=== PATIENT | male | born 1945 | race Caucasian/White ===

== ENCOUNTER → 2020-08-20 | Outpatient (CLI) | payer OTHER ==
[~2020-08-20] MED LIST: ALEVE220 M1 PO; ASPIRIN EC81 M1 PO; CALCIUM MAGNES1 EAC2 PO; ESSENTIAL DAIL1 EACH PO; FISH OIL 1,0001 EAC5 PO; FLEXERIL PO; GLUCOSAMINE &1 EAC1 PO; LISINOPRIL20 MG PO; MOBIC7.5 MG PO; MS CONTIN15 MG PO; MUCINEX600 MG PO; MULTIVITAMINS PO; NAPROSYN500 MG PO; NORCO 10-325 T1 EACH; NORCO 10-325 T1 EACH PO; NORCO 5-325 TA1 EACH PO; NORVASC5 M1 PO; PEPCID AC20 MG PO; PREDNISONE 20 M20 M1 PO; ZOFRAN 4 MG ORAL4 MG PO
== END ==
LOC: LAB 07:33
PROVIDERS: ATTEND Orthopaedic Surgery
DX: Z01.812 Encounter for preprocedural laboratory examination (principal); Z20.828 Contact with and (suspected) exposure to other viral communicable diseases

== ENCOUNTER 2020-08-23 06:11 | Day surgery (SDC) | payer OTHER ==
[2020-08-17 11:42] LABS: HEMATOCRIT 42.9 % (42.0-52.0); HEMOGLOBIN 14.7 gm/dL (14.0-18.0); MCH 31.9 pg (26.0-34.0); MCHC 34.3 g/dL (28.0-37.0); MCV 92.9 fL (80.0-100.0); RBC 4.62 mil/uL (4.50-6.00); RDW 11.5 % (10.5-14.5); WBC 6.4 thou/uL (4.0-11.0)
[2020-08-17 11:46] LABS: ALBUMIN 4.3 g/dL (3.4-5.0); CALCIUM 9.1 mg/dL (8.5-10.1); CREATININE 2.1 mg/dL (0.7-1.3); POTASSIUM 4.5 mmol/L (3.5-5.1); URINE BILIRUBIN NEGATIVE (Negative); URINE BLOOD TRACE (Negative); URINE CLARITY CLEAR; URINE COLOR YELLOW; URINE GLUCOSE-RANDOM* NEGATIVE (Negative); URINE KETONES NEGATIVE (Negative); URINE LEUKOCYTES-REFLEX NEGATIVE (Negative); URINE NITRITE-REFLEX NEGATIVE (Negative); URINE PROTEIN (DIPSTICK) NEGATIVE (Negative); URINE SPECIFIC GRAVITY >= 1.030 (1.005-1.035); URINE UROBILINOGEN 0.2 E.U./dl (0.2-1.0)
[2020-08-17 11:51] LABS: INR 1.1; PROTIME 11.3 Seconds (9.3-11.4)
--- NOTE | 2020-08-17 14:39 | EKG ---
[facility] [place] [address] ELECTROCARDIOGRAM REPORT Name: RUDOLPH GIL Room #: PRE [facility] M..#: [id number] Admission: Attend Phys: Naun Peterson MD Discharge: Date of : 45 Report #: [id number] THIS REPORT FOR: cc: Cristiano Elliott MD, Rene P. MD Santiago, Patrick MD [facility] ~ THIS REPORT FOR: //name// [facility] Test Date: 2020-08-17 Test Time: 11:35:12 Pat Name: RUDOLPH GIL Department: Room: Gender: Tongue Presser[facility] 1945 Requested By: Naun Peterson Order Number: [id number] : Rebel Vaca Measurements Intervals [place] Rate: 76 P: 34 PA: 168 QRS: -9 QRSD: 87 T: 8 QT: 380 QTc: 428 Interpretive Statements Sinus rhythm Compared to ECG 09/10/2011 11:29:50 Left ventricular hypertrophy no longer present Electronically Signed On 08-17-2020 14:39:33 PEA VINER [employer]CH[employer]IC by Rebel Vaca [email or web address] <ELECTRONICALLY SIGNED> By: Rebel Vaca MD, FACC 08/17/20 1439 1135 1135 Rebel Vaca MD, [facility] /EPI
[~2020-08-23] VITALS: Ht 152.4 cm; Wt 78.9 kg
[2020-08-23 06:41] VITALS: BP 130/85
--- NOTE | 2020-08-23 13:35 | NUR ---
PT ADMITTED TO ROOM 441 AT 11:00 AT BEDSIDE. PT ALERT XS4 GAVE PRN PO PAIN MED AND STATRED IV FLUIDS. PT WANTS TO DISCHARGE THIS AFTERNOON THERAPY TO WORK WITH PATIENT. ADMISSION PAPERWORK COMPLETED. HAS [employer] DRESSING INTACT TO RIGHT KNEE, SCD'S LISA AND IVAN HOSE ON LISA LE'S.
[2020-08-23 14:26] VITALS: BP 109/68
[2020-08-23 14:27] VITALS: BP 118/72
--- NOTE | 2020-08-23 15:34 | NUR ---
ASSESSMENT: CM REVIEWED CHART AND SPOKE WITH PTS . PT IS S/P PARTIAL KNEE REPLACEMENT. PT LIVES IN A HOUSE WITH HIS . THEY HAVE 3 STEPS WITH A HANDRAIL TO ENTER. ALL PATIENTS NEEDS ARE ON ONE LEVEL. PT HAS A CANE, FWW, AND 4WW AT HOME. PT IS PLANNING ON DOING OUTPATIENT THERAPY AND TO BEGIN ON THURSDAY. PT AND REPORT THEY SHOULD HAVE NO NEEDS FROM CM PRIOR TO DISCHARGE. CM WILL CONTINUE TO FOLLOW TO ASSIST NEEDED.
[2020-08-23 19:09] VITALS: BP 119/71
[2020-08-24 03:41] VITALS: BP 122/77
--- NOTE | 2020-08-24 03:55 | NUR ---
ASSUMED PT CARE AT 1900.PT ALERT/CALM AND COPERATIVE WITH CARE.PT UP WITH ASSIST.URINAL AT BEDSIDE WITH ADEQUATE URINE OUTPUT.MIKHAIL DRSG,IVAN,POLAR PACK AND SCD IN PLACE.PT RESTING ON HIS BED AT THIS TIME.CALL LIGHT WITHIN REACH.
[2020-08-24 06:16] LABS: HEMATOCRIT 36.2 % (42.0-52.0); HEMOGLOBIN 12.1 gm/dL (14.0-18.0); MCH 31.9 pg (26.0-34.0); MCHC 33.5 g/dL (28.0-37.0); MCV 95.1 fL (80.0-100.0); RBC 3.81 mil/uL (4.50-6.00); RDW 11.8 % (10.5-14.5); WBC 8.8 thou/uL (4.0-11.0)
[2020-08-24 07:55] VITALS: BP 114/69
--- NOTE | 2020-08-24 09:33 | NUR ---
ON-GOING ASSESSMENT: CM REVIEWED CHART AND SPOKE WITH PT. PT REPORTS OUTPATIENT THERAPY IS ALREADY ARRANGED FOR HIM TO BEGIN ON THURSDAY. PT HAS ALL NEEDED EQUIPMENT AT HOME. PT REPORTS NO FURTHER NEEDS FROM CM. PLANS ARE FOR PATIENT TO CONTINUE TO WORK WITH PT/OT AND DISCHARGE HOME ONCE CLEARED.
--- NOTE | 2020-08-24 11:48 | NUR ---
ASSUMED CARE 0700. PT IS A&O X 4. PT HAS SCD/IVAN HOSE IN PLACE. PT HAS ACTIVE BM SOUNDS. PT DENIES ANY PAIN, SOA. PT STATES THAT NAUSEA ONLY HAPPENS WHEN TAKING MORPHINE. MORPHINE UNDERSTANDS THAT ZOFRAN AND MORPHINE WILL HELP WITH NAUSEA WHEN TAKING PAIN MEDICATION. VSS. IV IS SALINE LOCK AND SHOWS NO SIGNS OF REDNESS OR SWELLING.
[2020-08-24 11:53] VITALS: BP 114/69
--- NOTE | 2020-08-29 08:16 | O ---
[facility] [place] [address] OPERATIVE REPORT Name: RUDOLPH GIL Room #: DEP [facility].#: [id number] Admission: 08/23/20 Attend Phys: Naun Peterson MD Discharge: 08/24/20 Date of : 45 Report #: [id number] THIS REPORT FOR: cc: Cristiano Elliott MD, Rene P. MD Abraham,Naun Suarez MD ~ CC: Cristiano Peterson DATE OF SERVICE: 08/23/2020 PREOPERATIVE DIAGNOSIS: Right knee medial compartment osteoarthritis. POSTOPERATIVE DIAGNOSIS: Right knee medial compartment osteoarthritis. PROCEDURE: Right medial compartment knee arthroplasty using Navio robotic assistance. SURGEON: Naun Peterson MD. HAND SANDER: Marce Gaming PA-C. INDICATIONS FOR HAND SANDER: Throughout the case, extensive retraction and manipulation of the knee was required. This was afforded by my assistant banquet manager. ANESTHESIA: LMA with an adductor canal block. IMPLANTS: Del Real and Nephew size 3 Journey II Oxinium medial femoral component, size 2 tibia and a size 8 polyethylene. TOURNIQUET TIME: 43 minutes. ESTIMATED BLOOD LOSS: 25 mL. COMPLICATIONS: None. SPECIMENS: None. CONDITION UPON LEAVING THE OPERATING ROOM: Stable. INDICATIONS FOR PROCEDURE: The patient is a 74-year-old gentleman with right knee medial compartment osteoarthritis. He had failed conservative measures for this and after discussion with him, he elected for right medial compartment knee arthroplasty. DESCRIPTION OF PROCEDURE: Risks, benefits, alternatives, complications were [facility] [address] [place] [address] OPERATIVE REPORT Name: GIL,RUDOLPH W Room #: DEP [facility] Abdulaziz.Amy.#: [id number] Admission: 08/23/20 Attend Phys: Naun Peterson MD Discharge: 08/24/20 Date of : 45 Report #: [id number] discussed in detail with the patient including, but not limited to risk of anesthesia, risk of damage to nerves, arteries, blood vessels, risk for infection, bleeding, risk for continued knee pain, need for reoperation. Informed consent was obtained from the patient. Right knee was appropriately marked in the preoperative holding area. IV Ancef was given for preoperative antibiotics. Adductor canal block was placed by anesthesia. He was brought to the operating room and placed in supine position on operating room table. LMA anesthesia was induced without complication. Tourniquet was placed on the right thigh. Right lower extremity was prepped and draped in normal sterile fashion. Timeout was performed properly identifying the patient and procedure as well as the instrumentation and implants. All in the operating room were in agreement. Right lower extremity was exsanguinated, tourniquet was inflated. Tourniquet time was 43 minutes. Standard approach to the medial knee was made with 10 blade through the skin. Dissection was taken down sharply to the fascia and deep flaps were developed medially and laterally. Fresh 10 blade was used to make a medial parapatellar arthrotomy and the knee was inspected. There was severe medial compartment osteoarthritis. ACL was intact. Lateral compartment and patellofemoral compartments were intact. It was decided to proceed with medial compartment arthroplasty. Reference pins were placed in the femur and the tibia and the knee was then digitally mapped using the Innovid robotic system. We sized the size 3 femur with a size 2 tibia and a 9 spacer. After acceptance of the intraoperative plan, the femoral and tibial resections were made with a Navio bur. The tibia was sized and found to be a size 2. Size 2 tibial trial was placed and pinned. The size 3 femoral trial was placed and this was then trialed with an 8 polyethylene. The size 8 polyethylene demonstrated 1 millimeter laxity medially throughout range of motion of the knee. Trial components were removed. Bony ends were thoroughly irrigated with normal saline. A final size 2 tibia and a size 3 Journey II BCS Oxinium femur were cemented in place using standard cementation techniques. While the cement cured, a periarticular injection consisting of morphine, ropivacaine, epinephrine, Toradol was placed around the knee joint capsule. After the cement cured, tourniquet was deflated. Hemostasis was obtained with Bovie cautery. Final size 8 polyethylene was placed. A gram of vancomycin was placed deep in the joint. The fascia was closed with 0 Vicryl, skin was closed with 2-0 Vicryl, 3-0 Monocryl, Dermabond and a MIKHAIL dressing was applied. The patient tolerated this procedure well and went to recovery room under care of anesthesia postoperatively. <ELECTRONICALLY SIGNED> By: Naun Peterson MD 08/29/20 0816 1206 1306 Naun Peterson MD /nt
== END 2020-08-24 14:20 | disposition home or self-care (01) ==
LOC: OR 06:11 → TBA 06:15 → OR 08:52 → 4S 11:08 → OR 12:08
PROVIDERS: ATTEND Orthopaedic Surgery
DX: M25.561 Pain in right knee (principal); M17.11 Unilateral primary osteoarthritis, right knee; I10 Essential (primary) hypertension; K21.9 Gastro-esophageal reflux disease without esophagitis; Z98.890 Other specified postprocedural states; Z79.899 Other long term (current) drug therapy; Z87.891 Personal history of nicotine dependence; Z85.828 Personal history of other malignant neoplasm of skin
CPT/HCPCS: 10195; 50010; 50101; 50415; 50954; 51130; 51225; 51320; 53078; 53370; 54118; 56527; 56528; 57095; 57103; 57110; 57127; 62110; 62900; 70005

== ENCOUNTER → 2020-11-26 | Outpatient (CLI) | payer OTHER ==
[~2020-11-26] MED LIST changes: +ASA81BEC PO
== END ==
LOC: LAB 13:24
PROVIDERS: ATTEND Orthopaedic Surgery Sports Medicine
DX: Z01.812 Encounter for preprocedural laboratory examination (principal); Z20.822 Contact with and (suspected) exposure to COVID-19

== ENCOUNTER 2020-11-28 06:04 | Day surgery (SDC) | payer OTHER ==
[~2020-11-28] VITALS: Ht 170.2 cm; Wt 79.4 kg
[2020-11-28 06:30] VITALS: BP 124/78
--- NOTE | 2020-11-29 13:07 | O ---
[facility] [place] [address] OPERATIVE REPORT Name: RUDOLPH GIL Room #: [facility] Elsy.#: [id number] Admission: 11/28/20 Attend Phys: Kelechi Archibald Discharge: 11/28/20 Date of : 45 Report #: [id number] THIS REPORT FOR: cc: Cristiano Elliott MD, Rene P. MD VanDenBerghe,Kelechi Vega MD ~ DATE OF SERVICE: 11/28/2020 PREOPERATIVE DIAGNOSES: Right shoulder pain, rotator cuff tear, impingement syndrome. POSTOPERATIVE DIAGNOSES: Right shoulder rotator cuff tear involving subscapularis and supraspinatus, medium sized, complex labral tear, glenohumeral joint chondromalacia, subacromial bursitis, intraarticular synovitis. PROCEDURES PERFORMED: Right shoulder arthroscopy, rotator cuff repair, extensive debridement. SURGEON: Dr. Kelechi Bishop CREW LEADER: Poornima Thompson PA-C ANESTHESIA: General with preoperative ultrasound-guided interscalene block. FLUIDS: 1000 mL crystalloid. ESTIMATED BLOOD LOSS: Negligible. DESCRIPTION OF PROCEDURE: After proper identification of the patient and operative site in preoperative holding area, the operative site was signed by myself. Prophylactic antibiotics were given. The patient elected to receive an ultrasound-guided block after reviewing the risks, benefits, alternatives and potential complications with anesthesia. After a satisfactory block, the patient was brought back to the operative suite after induction of satisfactory general anesthesia. The patient was carefully positioned in the left lateral decubitus position. Alfaro bag and extra roll were utilized to carefully support the torso. Right shoulder was sterilely prepped and draped in the usual manner and placed in 10 pounds of balanced arthroscopic suspension. Posterior portal was established, joint was inflated with an arthroscopic pump set at 35 mmHg. An anterior superior portal was created followed by an anterior inferior portal. Once the subscapularis tear was discovered, intraarticular synovitis was noted about the rotator interval and the root of the biceps tendon and superior labrum. Some diffuse more superficial fraying and tearing of the superior labrum extending into the anterior labrum was noted and this was carefully debrided. Long head of biceps tendon was stable in its attachment to the [facility] [address] [place] [address] OPERATIVE REPORT Name: RUDOLPH GIL Room #: [facility] M.R.#: [id number] Admission: 11/28/20 Attend Phys: Kelechi Archibald Discharge: 11/28/20 Date of : 45 Report #: [id number] superior labrum and glenoid. No evidence of groove pathology was noted. No subluxation into the upper border of the subscapularis and upper border tear of the subscapularis was noted with lever pull maneuver. The subscap was prepared for repair. Lesser tuberosity was prepared with combination of hand and motorized instrumentation. A FiberTape was passed in a simple manner using the Lingoramiion device, this was secured with a 4.75 mm SwiveLock anchor and nicely reduced the upper rolled border of the subscap. It was stable to probing from the articular side. A full thickness tear of the more anterior supraspinatus was also noted. The remainder of the rotator cuff was intact. Minimal thinning of the chondral surface of the humeral head was appreciated inferiorly. At this point, the arthroscope was introduced in the subacromial space. Very thickened subacromial bursa was encountered. There was mild fraying of the coracoacromial arch without significant bony prominence. An approximate centimeter and half tear was noted of the more anterior supraspinatus. An additional lateral and anterior as well as a portal just off the lateral border of the acromion were created. Greater tuberosity was prepared with combination of hand and motorized instrumentation. After the soft tissue was carefully debrided, this an essence nonretracted minimally retracted crescent shaped tear was repaired with an Arthrex double loaded 4.75 mm SwiveLock anchor was inserted and had good purchase. Sutures were passed in a horizontal mattress fashion. They were tied and then secured more laterally creating a double row construct where an additional SwiveLock anchor was placed. Repair construct was stable to probing. Subacromial space thoroughly irrigated with normal saline. Portals closed with simple nylon stitches. Sterile dressing was applied. The patient will be immobilized in a sling and abduction pillow for 6 weeks postoperatively with no external rotation beyond neutral for the first 4 weeks. A qualified program services assistant utilized throughout the entire procedure to aid in patient limb positioning, visualization with the arthroscope instrument and suture passage as well as closure and sling and dressing application. <ELECTRONICALLY SIGNED> By: Kelechi Bishop MD 11/29/20 1307 0837 0857 Kelechi Bishop MD /rohith
== END 2020-11-28 10:10 | disposition home or self-care (01) ==
LOC: OR 06:04 → TBA 06:04 → OR 10:10
PROVIDERS: ATTEND Orthopaedic Surgery Sports Medicine
DX: M75.101 Unspecified rotator cuff tear or rupture of right shoulder, not specified as traumatic (principal); M75.41 Impingement syndrome of right shoulder; S43.491A Other sprain of right shoulder joint, initial encounter; M94.211 Chondromalacia, right shoulder; M75.51 Bursitis of right shoulder; M65.811 Other synovitis and tenosynovitis, right shoulder; I10 Essential (primary) hypertension; Z87.891 Personal history of nicotine dependence; K21.9 Gastro-esophageal reflux disease without esophagitis; Z98.890 Other specified postprocedural states; Z79.899 Other long term (current) drug therapy; Z96.651 Presence of right artificial knee joint; Z85.828 Personal history of other malignant neoplasm of skin; Z79.82 Long term (current) use of aspirin; X58.XXXA Exposure to other specified factors, initial encounter; Y93.89 Activity, other specified; Y92.89 Other specified places as the place of occurrence of the external cause; Y99.8 Other external cause status
CPT/HCPCS: 50010; 50101; 50172; 50386; 50417; 50935; 51320; 51847; 52001; 52313; 53610; 56527; 57103; 57419; 57420; 62110; 62900; 70005

== ENCOUNTER → 2021-07-22 | Outpatient (CLI) | payer OTHER | LOC: LAB 07:51 | PROVIDERS: ATTEND Student in an Organized Health Care Education/Training Program | DX: Z01.812 Encounter for preprocedural laboratory examination (principal); Z20.822 Contact with and (suspected) exposure to COVID-19 ==

== ENCOUNTER → 2021-07-24 | Outpatient (CLI) | payer OTHER ==
[~2021-07-24] VITALS: Ht 170.2 cm; Wt 74.8 kg
--- NOTE | 2021-07-24 16:17 | P ---
[facility] [place] [address] PROCEDURE REPORT Name: RUDOLPH GIL Room #: [facility]#: [id number] Admission: 07/24/21 Attend Phys: Td Pritchard Discharge: Date of : 45 Report #: [id number] THIS REPORT FOR: cc: Cristiano Elliott MD, Rene P. MD McElhinney, Christian C. MD ~ cc: Cristiano Elliott MD DATE OF SERVICE: 07/24/2021 PROCEDURE PERFORMED: Colonoscopy. HISTORY OF PRESENT ILLNESS: The patient is a 75-year-old male who presents today for routine screening colonoscopy. Last colonoscopy was 10 years ago. He denies any symptoms, no family history of colon cancer. DESCRIPTION OF PROCEDURE: The risks and benefits of the procedure were explained to the patient, those risks including but not limited to bleeding, perforation and the risk of sedation. He understood these risks and gave informed consent. Sedation was given using propofol per anesthesia. Next, a digital rectal exam did show a prostate nodule, otherwise normal. Next, using a standard Olympus colonoscope, the scope was placed in the patient's anus and advanced under direct vision to the cecum. The overall prep was excellent. The cecum and ileocecal valve were normal in appearance. Ascending, transverse and descending colon were normal. Multiple diverticula were noted in the sigmoid colon. No evidence of inflammation, otherwise normal. The rectal mucosa was normal. On retroflexion, no abnormalities were noted. The scope was then withdrawn and the procedure terminated. The patient tolerated the procedure well. IMPRESSION: 1. Sigmoid diverticulosis. 2. Prostate nodule noted on digital rectal exam. 3. Otherwise, normal colonoscopy. RECOMMENDATIONS: We would recommend PSA at this time if not done recently for further evaluation of prostate nodule. Thank you for allowing me to participate in his care. <ELECTRONICALLY SIGNED> By: Td Meier MD 07/24/21 1617 0833 1025 Td Meier MD /nt
== END | disposition home or self-care (01) ==
LOC: GI
PROVIDERS: ATTEND Specialist
DX: Z12.11 Encounter for screening for malignant neoplasm of colon (principal); K57.30 Diverticulosis of large intestine without perforation or abscess without bleeding; N40.2 Nodular prostate without lower urinary tract symptoms; I10 Essential (primary) hypertension; K21.9 Gastro-esophageal reflux disease without esophagitis; Z98.890 Other specified postprocedural states; Z79.899 Other long term (current) drug therapy; Z87.891 Personal history of nicotine dependence; Z85.828 Personal history of other malignant neoplasm of skin
CPT/HCPCS: 62110; 62900

== ENCOUNTER 2021-09-11 07:25 | Day surgery (SDC) | payer OTHER ==
[~2021-09-11] VITALS: Ht 170.2 cm; Wt 81.2 kg
[2021-09-11 08:06] VITALS: BP 134/76
--- NOTE | 2021-09-11 10:42 | EKG ---
[address] [place] [address] ELECTROCARDIOGRAM REPORT Name: RUDOLPH GIL Room #: [address] [place] [address].#: [id number] Admission: 09/11/21 Attend Phys: Ray Parker MD Discharge: Date of : 45 Report #: [id number] [facility] Test Date: 2021-09-11 Test Time: 08:46:46 Pat Name: RUDOLPH GIL Department: Room: 150 3 Gender: M Sexual Health Physician: MARKUS : 1945 Requested By: Ray Parker Order Number: [id number] : Rebel Vaca Measurements Intervals [place] Rate: 65 P: 32 [place]: 171 QRS: -8 QRSD: 89 T: 6 QT: 392 QTc: 408 Interpretive Statements Pacemaker spikes or artifacts Sinus rhythm Compared to ECG 08/17/2020 11:35:12 No significant changes Electronically Signed On 09-11-2021 10:42:09 HOSPITALIST PHYSICIAN by Rebel Vaca [email or web address] <ELECTRONICALLY SIGNED> By: Rebel Vaca MD, [facility] 09/11/21 1042 0846 0846 Rebel Vaca MD, FACCarlos /EPI
[2021-09-11] MEDS ORDERED: HYDROCODON-ACE1 EAC7 PO (11:59)
[2021-09-11 12:23] VITALS: BP 134/76
--- NOTE | 2021-09-13 15:43 | O ---
[facility] [address] [place] [address] OPERATIVE REPORT Name: RUDOLPH GIL Room #: DEP [facility].#: [id number] Admission: 09/11/21 Attend Phys: Ray Parker MD Discharge: 09/11/21 Date of : 45 Report #: [id number] THIS REPORT FOR: cc: Cristiano Elliott MD, Rene P. MD Chu, Peter Y. MD ~ DATE OF SERVICE: 09/11/2021 PREOPERATIVE DIAGNOSIS: Symptomatic left inguinal hernia. POSTOPERATIVE DIAGNOSIS: Symptomatic large left direct inguinal hernia. PROCEDURE PERFORMED: Laparoscopic properitoneal repair of left inguinal hernia with mesh. ANESTHESIA: General. SURGEON: Ray Parekr MD COMPLICATIONS: None. ESTIMATED BLOOD LOSS: 5 mL. DESCRIPTION OF PROCEDURE: With the patient under general anesthesia, Pina catheter was placed. IV antibiotic was administered. Abdomen prepped and draped in sterile fashion. Timeout was performed. The patient did receive preoperative IV antibiotics. A 0.25% Marcaine was used to anesthetize the skin adjacent to the umbilicus on the left side. A transverse incision about 2 cm was made. The anterior fascia was identified. The anterior fascia was incised transversely. The muscle was spread. The space between the muscle and the posterior fascia was bluntly dissected. The origin balloon trocar was then also placed in the same space going inferiorly from the umbilical level. CO2 was placed through the origin balloon trocar. Under visualization, a 5 mm trocar was placed in the properitoneal space. Properitoneal space was then dissected free using blunt dissection and cautery. The left inferior epigastric vessels were preserved and identified. The dissection carried down to the pubic bone. A second 5 mm trocar was then placed right side of the midline about an inch and half below the first 5 mm trocar. Using the 2 trocars for dissection, the patient was found to have a large direct defect. There is a large amount of properitoneal fat that was pushed up into the wall. The fat was free from the direct defect. The attenuated fascia was even seen very easily. This was all reduced. The patient had a pretty weak wall. The internal ring actually it looks like it is part of the defect also. The cord structures were identified. The peritoneal reflection was found on the cord structure. There was no indirect sac. The peritoneum was free from the cord structure bringing in off the cord. There is a moderate-sized cord lipoma that was reduced. A large left [facility] [address] [place] [address] OPERATIVE REPORT Name: RUDOLPH GIL Room #: DEP [facility].#: [id number] Admission: 09/11/21 Attend Phys: Ray Parker MD Discharge: 09/11/21 Date of : 45 Report #: [id number] sided 3DMax lightweight mesh was then placed. This was placed through the 11 mm trocar site. This was then opened in the properitoneal space. This was positioned. This covered the hernia defect well. The mesh was tacked to the lateral wall using SorbaFix. The mesh was tacked inferomedially to the Harpreet's ligament and just above the pubic bone. This is fixing the mesh just below the fascia defect in the direct defect. Superomedially the mesh was tacked to the rectus muscle. Mesh was stabilized well. No bleeding was identified. CO2 was evacuated. The patient did seem to have some air in the peritoneal cavity. Posterior fascia at the umbilical level was then grasped with hemostat. This was then opened and I can see the peritoneum but very little air actually was able to come out through that opening. The posterior fascia was closed with [id number] 0 Vicryl x1. The anterior fascia was closed with [id number] 0 Vicryl and the single interrupted 0 Vicryl. Skin was irrigated. Skin was closed with 5-0 PDS. Steri-Strip, Band-Aids applied. The patient tolerated the procedure well. <ELECTRONICALLY SIGNED> By: Ray Parker MD 09/13/21 1543 07 30 Ray Parker MD /nt
== END 2021-09-11 13:00 | disposition home or self-care (01) ==
LOC: OR 07:25 → TBA 07:28 → OR 10:41
PROVIDERS: ATTEND Surgery
DX: K40.90 Unilateral inguinal hernia, without obstruction or gangrene, not specified as recurrent (principal); I10 Essential (primary) hypertension; K21.9 Gastro-esophageal reflux disease without esophagitis; Z98.890 Other specified postprocedural states; Z79.899 Other long term (current) drug therapy; Z20.822 Contact with and (suspected) exposure to COVID-19; Z85.828 Personal history of other malignant neoplasm of skin
CPT/HCPCS: 50010; 50101; 50411; 50455; 50507; 50555; 50848; 52265; 53065; 53307; 54118; 56525; 56526; 58574; 62110; 62900; 70005